=== PATIENT | female | born 1975 | race Caucasian/White ===

== ENCOUNTER → 2016-11-24 | Outpatient (CLI) | payer BC ==
[~2016-11-24] VITALS: Ht 158.8 cm; Wt 78.5 kg
[~2016-11-24] MED LIST: ASPIRIN81 M2 PO; BENTYL20 MG PO; EXCEDRIN EXTRA1 EACH PO; FLINTSTONES1 EACH PO; HYDROCODON-ACE1 EAC7 PO; OMEPRAZOLE40 M1 PO; ONE DAILY FOR1 EAC1 PO; PRILOSEC40 MG PO; TOPAMAX50 MG PO
== END | disposition home or self-care (01) ==
LOC: AMB 12:54
PROC: 0DJ08ZZ Inspection of Upper Intestinal Tract, Via Natural or Artificial Opening Endoscopic (ICD-10-PCS; principal; 2016-11-24)
DX: K29.70 Gastritis, unspecified, without bleeding (principal); K21.9 Gastro-esophageal reflux disease without esophagitis; Z98.84 Bariatric surgery status; K90.9 Intestinal malabsorption, unspecified; K58.9 Irritable bowel syndrome, unspecified
CPT/HCPCS: J2250

== ENCOUNTER 2017-11-15 23:19 | Emergency (ER) | payer OTHER ==
[~2017-11-15] VITALS: Ht 157.5 cm; Wt 87.5 kg
[2017-11-16 00:11] LABS: HEMOGLOBIN 13.9 G/DL (11.9-15.5); MCH 30.4 PG (29.0-34.0); MCHC 34.8 G/DL (30.0-36.0); MCV 87.5 FL (83-99); PLATELET COUNT 178 K/uL (156-360); RBC DIS.WIDTH-SD 38.5 % (39-53); RED BLOOD COUNT 4.57 M/uL (3.80-5.20); WHITE BLOOD COUNT 8.6 K/uL (4.1-10.2)
[2017-11-16 00:20] LABS: CHLORIDE 110 mEq/L (99-109); POTASSIUM 3.8 mEq/L (3.7-5.4); SODIUM 142 mEq/L (136-147)
[2017-11-16 00:21] LABS: GLUCOSE 96 mg/dL (70-99)
[2017-11-16 00:25] LABS: CREATININE 0.8 mg/dL (0.6-1.3); GFR ESTIMATE (CALCULATED) > 59 mL/min/
[2017-11-16 00:26] LABS: UREA NITROGEN (BUN) 29 mg/dL (9-23)
[2017-11-16 00:59] LABS: COMMENTS - BLOOD GASES C+A+; DEVICE NO DEVICE; FI02 21 %; O2 FLOW 0 L/MIN; PO2 127 mm Hg (80-100); SITE LR
[2017-11-16 01:00] LABS: CARBOXY HGB 1.5 % (0-5); METHEMOGLOBIN 1.2 % (0-1.5); PCO2 < 19 mm Hg (35-45); pH 7.66 (7.35-7.45)
[2017-11-16 01:15] LABS: TROP-I INTERPRETATION NEGATIVE; TROPONIN-I < 0.01 ng/mL (0.0-0.30)
[2017-11-16 01:16] LABS: QUANTITATIVE HCG < 4.0 MIU/ML
[2017-11-16 01:37] LABS: SITE RR
[2017-11-16 01:38] LABS: BASE EXCESS -0.9 mEq/L (-3 to +3); BICARBONATE 20.1 mEq/L (22-26); CARBOXY HGB 1.8 % (0-5); COMMENTS - BLOOD GASES C+A+; DEVICE NO DEVICE; FI02 21 %; O2 FLOW 0 L/MIN; PCO2 24 mm Hg (35-45); PO2 74 mm Hg (80-100); pH 7.53 (7.35-7.45)
[2017-11-16] MEDS ORDERED: PROVENTIL HFA6.7 GM IH (02:21)
[2017-11-16 02:27] VITALS: BP 126/75
== END 2017-11-16 02:42 | disposition home or self-care (01) ==
LOC: EME 23:19
PROVIDERS: Emergency Medicine; Physician Assistant
DX: R06.4 Hyperventilation (principal); Z97.5 Presence of (intrauterine) contraceptive device; Z98.84 Bariatric surgery status; Z87.891 Personal history of nicotine dependence
CPT/HCPCS: 36600; 80048; 84484; 84702; 85027; 85379; 93005; 94640; 99281; 99285